=== PATIENT | female | born 1950 | race Caucasian/White ===

== ENCOUNTER → 2017-10-02 10:24 | Outpatient (CLI) | payer MEDICARE, SELFPAY ==
--- NOTE | 2017-10-13 12:10 | PCM.PN.BLA ---
Progress Note This progress noted is dated for 10/02/17. Clara presents for right breast stereotactic breast biopsy. Clara had attempted US guided right needle core breast biopsy on 09/19/17, however the ultrasound lesion could not be identified Therefore, I have discussed this with patient. I have offered alternative biopsy option of stereotactic breast biopsy. She agreed with this. After appropriate time out protocol was followed, patient was placed on the stereotactic breast biopsy table. Manager Occupational films were obtained, for the location of the abnormal mammographic lesion. However, despite multiple views on hand surgeon films, no definitive abnormal mammographic lesions were noted that were indicative for biopsy. Therefore, I have discussed this with the patient. I have recommended repeat right breast US/mammograms to be done in November, and also 3D mammography. Will then reevaluate patient after this is done. Patient agrees.
--- NOTE | 2017-10-13 12:13 | PN_ITS ---
Progress Note This progress noted is dated for 10/02/17. Clara presents for right breast stereotactic breast biopsy. Clara had attempted US guided right needle core breast biopsy on 09/19/17, however the ultrasound lesion could not be identified Therefore, I have discussed this with patient. I have offered alternative biopsy option of stereotactic breast biopsy. She agreed with this. After appropriate time out protocol was followed, patient was placed on the stereotactic breast biopsy table. Sail Finisher Hand films were obtained, for the location of the abnormal mammographic lesion. However, despite multiple views on auto accessories installer films, no definitive abnormal mammographic lesions were noted that were indicative for biopsy. Therefore, I have discussed this with the patient. I have recommended repeat right breast US/mammograms to be done in November, and also 3D mammography. Will then reevaluate patient after this is done. Patient agrees.
== END ==
PROVIDERS: Family Provider Family Medicine; PCP Family Medicine; Visit Provider Surgery
DX: R92.8 Other abnormal and inconclusive findings on diagnostic imaging of breast (principal)
CPT/HCPCS: 19081

== ENCOUNTER → 2018-08-27 15:24 | Outpatient (CLI) | payer MEDICARE, SELFPAY ==
[2018-08-27 14:22] VITALS: BMI 31.6
--- NOTE | 2018-08-27 15:38 | RAD_ITS ---
STUDY: X-RAY - LEFT KNEE REASON FOR EXAM: Female, 67 years old. Chronic pain TECHNIQUE: 3 view(s) of the knee. COMPARISON: None. FINDINGS: There are degenerative changes of the knee demonstrate spurs from the tibial and femoral condyles and from the margins of the patella. There are no fractures and no knee joint effusion. The quadriceps and patellar tendons are normal. RAD/Knee 3 Views IMPRESSION: Moderate degenerative changes of the knee. No acute fracture Electronically Signed: Abdullahi Peterson MD at 3:02 EST Tel , Service support ,
[2018-08-27 17:36] LABS: Anion Gap 7 (5-15); BUN 14 mg/dL (7-18); BUN/Creat Ratio 17.7 RATIO (10-20); Calcium,Total 9.3 mg/dL (8.5-10.1); Chloride 103 mmol/L (98-107); Creatinine, Serum 0.79 mg/dL (0.55-1.02); EST Glomerular Filtration Rate 77 mL/min (>60); Est Glom Filt Rate - Afr Amer 93 mL/min (>60); Glucose 87 mg/dL (74-106); Potassium 3.4 mmol/L (3.5-5.1); Sodium Level 139 mmol/L (136-145)
== END ==
PROVIDERS: Family Provider Family Medicine; PCP Family Medicine; Referring Provider Family Medicine; Visit Provider Family Medicine
DX: M19.90 Unspecified osteoarthritis, unspecified site (principal); I10 Essential (primary) hypertension
CPT/HCPCS: 36415; 73562; 80048

== ENCOUNTER → 2018-09-04 13:52 | Outpatient (CLI) | payer MEDICARE, SELFPAY ==
[2018-08-27 14:22] VITALS: BMI 31.6
[2018-09-02 10:13] VITALS: BMI 31.1
--- NOTE | 2018-09-04 14:01 | BD_ITS ---
STUDY: DUAL ENERGY X-RAY ABSORPTIOMETRY / DXA REASON FOR EXAM: Female, 67 years old. The patient is postmenopausal. Loss of height. TECHNIQUE: Bone Mineral Density (BMD) measurements of lumbar spine and bilateral hips were obtained. COMPARISON: None. FINDINGS: Lumbar Spine (L1-L4): g/cm2 (1.047) / T-score (-1.1) / Z-score (0.5) Findings are suggestive of osteopenia with a low fracture risk. Left Femur Total: g/cm2 (0.858) / T-score (-1.2) / Z-score (0.2) Left Femoral Neck: g/cm2 (0.901) / T-score (-1.0) / Z-score (0.6) Right Femur Total: g/cm2 (0.937) / T-score (-0.6) / Z-score (0.8) Right Femoral Neck: g/cm2 (0.879) / T-score (-1.1) / Z-score (0.5) BD/Dexa Bone Density Study IMPRESSION: The patient is considered osteopenic as outlined below according to World Nicholas Organization (WHO) criteria with a low fracture risk. Reference Information: The T-score is the number of standard deviations above or below the standard which is normal for young adults at their peak bone mineral density. The World Health Organization (WHO) interprets the T-scores as follows: Above -1 Normal bone density Between -1 and -2.5 Osteopenia Equal to / or below -2.5 Osteoporosis As a practical clinical guideline, osteopenia may be graded as follows: Mild -1 through -1.5 Moderate -1.6 through -2.0 Severe -2.1 through -2.4 The Z-score is the number of standard deviations above or below age-matched controls. A Z-score of less than -1.5 would be considered abnormal. References: 1. NIH Osteoporosis and Related Bone Diseases http://www.osteo.org 2. International Society for Clinical Densitometry http://www.iscd.org 3. National Osteoporosis Foundation http://www.nof.org Electronically Signed: Jay Guevara MD at 14:18 EST , Service support ,
== END ==
PROVIDERS: Family Provider Family Medicine; PCP Family Medicine; Referring Provider Family Medicine; Visit Provider Family Medicine
DX: N95.9 Unspecified menopausal and perimenopausal disorder (principal)
CPT/HCPCS: 77080

== ENCOUNTER → 2019-02-05 | Outpatient (CLI) | payer MEDICARE, SELFPAY ==
[2019-01-14 11:20] VITALS: BMI 31.2
--- NOTE | 2019-02-05 08:08 | CT_ITS ---
STUDY: CT ABDOMEN AND PELVIS WITH AND WITHOUT CONTRAST REASON FOR EXAM: Female, 68 years old. Gross hematuria. Intermittent right lower quadrant pain. RADIATION DOSAGE (If Supplied By Facility): CTDIvol = ( 20.48 ) mGy, DLP = ( 2755.10 ) mGycm TECHNIQUE: Transaxial images were obtained from the dome of the diaphragm to the symphysis pubis without oral contrast. 100CC IV Isovue 300 was administered. Sagittal and coronal images were reconstructed. Individualized dose optimization techniques were used for this CT. COMPARISON: None. FINDINGS: The visualized lung bases are unremarkable. The visualized portions of the heart are within normal limits. Normal liver. There are surgical clips in the gallbladder fossa consistent with a prior cholecystectomy. Normal spleen. Normal pancreas. Normal bilateral adrenal glands. Normal right kidney. Normal left kidney. Normal visualized stomach. Normal small intestine. There are multiple colonic diverticula consistent with diverticulosis. The appendix is visualized and appears normal. There is scattered atherosclerotic calcification of the abdominal aorta, without a demonstrated aneurysm. Normal inferior vena cava. Normal retroperitoneum. There is a 1.8 cm x 2.8 cm calculus at the base of the bladder. There is absence of the uterus consistent with a prior hysterectomy. Small bilateral inguinal hernias containing fat. Disc space narrowing and degeneration at the L5-S1 level. CT/CT Abd/Pelvis W/WO Contrast IMPRESSION: 1.8 cm x 2.8 cm focus at the base of the bladder. Sigmoid diverticulosis. Electronically Signed: Jay Guevara, at 9:20 EDT , Service support ,
[2019-02-05 08:21] LABS: CREATININE FINGERSTICK 0.8 mg/dL (0.55-1.02); EGFR FINGERSTICK > 60.0000 mL/min (>60)
== END | disposition home or self-care (01) ==
PROVIDERS: Family Provider Family Medicine; PCP Family Medicine; Referring Provider Urology; Visit Provider Urology
DX: R31.0 Gross hematuria (principal)
CPT/HCPCS: 74178; Q9967

== ENCOUNTER 2019-02-17 05:54 | Day surgery (SDC) | payer MEDICARE, SELFPAY ==
[2019-01-14 11:20] VITALS: BMI 31.2
[2019-02-17] VITALS (7 sets, daily range): BP systolic 117–145; BP diastolic 70–84; PULSE 65–84; RESP 16; TEMP 36.3–36.8; O2SAT 99–100; BMI 30.9
--- NOTE | 2019-02-17 07:30 | CALC_PTH ---
PATIENT: JUSTICE EVANS LOC: [facility] [place] U#:[id number] AGE/SX: 68/F ROOM: RE02/17/[address]: Dr. Shanika Sharma MD : 1950 BED: DIS: 02/17/2019 SPEC #: [id number] RECD: 02/18/19 07:54 STATUS: MATIAS RECarmelo #: [id number] MED: 02/17/19 07:[address]: Shanika Sharma DEPT: SURGICAL PATHOLOGY RECD BY: Cornelio Lomeli ENTERED: 02/18/19 11:06 SP TYPE: Calculi OTHR DR: Dr. Colin Del Rosario, DO Tissues: CALCULI Procedures: Surgery Specimen Level I HEADER OPERATION: Cystoscopy, laser removal of bladder foreign body PRE-OP DIAGNOSIS: Calculus of bladder, UTI, gross hematuria, chronic bladder pain, nocturia, urge incontinence TISSUE SUBMITTED: Bladder stones and stitch for verification only GROSS DIAGNOSIS Fragments of stones, clinically bladder stones. NAM:michael 02/18/19 COMMENT If chemical analysis is requested on this specimen, please notify the laboratory. GROSS DESCRIPTION Received in fixative is one container labeled with the patient's name and designated bladder stones and stitch. The specimen consists of multiple fragments of handy-brown stone that in aggregate measure 3.5 x 1 x 1 cm. The specimen is for gross identification only. / NAM:michael 02/18/19 CPT: 98793
[2019-02-17] MEDS: Cefazolin 2 GM in 0.9% Normal Saline 100 ML IV (07:44)
[2019-02-17] MEDS: Lubricating Jelly 60 GM Tube 30 GM TOPICAL (08:04)
--- NOTE | 2019-02-17 09:58 | DCINST_ITS ---
Discharge Diet: No Restrictions Discharge Activity: May not drive while taking narcotic pain medications. May resume sexual activity in: 1 week Call your doctor if you observe: Fever of 101 or Higher, Inability to urinate, Shortness of breath, Chest pain, Calf discomfort, Uncontrolled pain Allergies/Adverse Reactions: Allergies Sulfa (Sulfonamide Antibiotics) Allergy (Severe, Verified 02/13/19 10:20) Hives Medications to take at Discharge ibuprofen 200 mg capsule 200 mg PO TID-QID PRN 08/27/18 Acetaminophen [Tylenol] 500 - 1,000 mg PO Q6H PRN PRN 02/13/19 Calcium Carbonate/Vitamin D3 [Calcium 600-Vit D3 200 Tablet] 1 ea PO BID 02/13/19 Lisinopril/Hydrochlorothiazide [Lisinopril-Hctz 20-12.5 mg Tab] 1 tab PO DAILY 02/13/19 Multivit-Min/FA/Lycopen/Lutein [Centrum Silver Tablet] 1 ea PO DAILY 02/13/19 Cephalexin [Keflex] 500 mg PO Q12 3 Days #6 cap 02/17/19 Oxycodone HCl/Acetaminophen [Percocet 5/325] 1 - 2 tab PO Q6H PRN PRN 7 Days #15 tab 02/17/19 Phenazopyridine HCl [Pyridium] 200 mg PO TID PRN PRN 7 Days #30 tab 02/17/19 The following prescriptions were given: Cephalexin [Keflex] 500 mg PO Q12 3 Days #6 cap Prescription Printed Oxycodone HCl/Acetaminophen [Percocet 5/325] 1 - 2 tab PO Q6H PRN PRN 7 Days #15 tab PRN Reason: Pain Prescription Printed Phenazopyridine HCl [Pyridium] 200 mg PO TID PRN PRN 7 Days #30 tab PRN Reason: Bladder Spasms Prescription Printed Primary Care Physician: Colin Del Rosario DO [Primary Care Provider] - Test Results: Test results from this visit will be discussed in further detail at your follow- up appointment, if applicable. Please Follow Up With: Shanika Sharma MD When: 2 weeks, call for appt Proposed Discharge Date: 02/17/19
--- NOTE | 2019-02-17 09:59 | OP.PCM_ITS ---
Problem List (1) Bladder calculus Status: Acute (2) Foreign body in bladder Status: Acute Report of Operation Date of Procedure: 02/17/19 Pre-Operative Diagnosis: Bladder calculus, foreign body in bladder (suture) Post-Operative Diagnosis: Same Surgery/Procedure Performed:: Cystoscopy, holmium laser lithotripsy, excision and removal of foreign body in the bladder and removal of stone Description of Surgical Findings:: Stitch from the patient's right bladder wall was removed along with the 2 cm bladder calculus attached to using holmium laser lithotripsy and irrigation Type of Anesthesia:: General Special Medications: Ancef 2 g IV Estimated Blood Loss (mL): 5 cc Description of Procedure: The patient is a 68-year-old female who had a hysterectomy and procedure for incontinence in 2002. She presented to the office with microscopic hematuria and right-sided pelvic pain. On evaluation she was identified as having a suture into the bladder lumen from the right lateral wall approximately half centimeter on the bladder neck with a 2 cm calcification at the end of the stitch. After discussing the risk benefits and alternatives, informed consent was obtained and we proceeded for surgical intervention for removal of the stitch and stone. She was taken the operating room and placed on the operating room table. Anesthesia monitored the head, neck, airway, IV access and vital signs throughout the case. Once anesthesia was appropriately administered the patient was prepped and draped in usual sterile fashion. A 70 degree lens and 21 [place] cystoscope was inserted through the urethra without difficulty and the stone was immediately visualized in the patient's right bladder neck area attached to a suture as found in the office on previous cystoscopy. There is also a tissue bridge likely from chronic irritation along the area of the patient's right bladder neck. This tissue bridge is not involving the patient's right ureteral orifice which was identified along the area of the trigone. Her orifice is small and I was unable to easily insert an 8 [place] cone-tip catheter for retrograde pyelogram. There is no obvious injury to the ureter. At this time a 1000 ?m laser fiber was used in the setting of 1 J and 0.8 Hz and the stone was fragmented into multiple small pieces which were irrigated and removed with the resectoscope. The suture was also removed with the laser and it was approximately 0.75-1 cm in length. Following irrigation of the bladder, all large stone fragments were removed and no further suture material was identified. Patient's bladder was emptied and she was awakened and taken to the recovery room in good condition. There were no complications during this procedure. Grafts/Implants Used: None - Complications none - Admit VTE Documentation VTE Present on Admission: Yes VTE Mechan Device Prophylaxis: SCD's VTE Pharm Prophylaxis ordered?: No Reason prophylaxis not ordered:: Treatment Not Indicated
== END 2019-02-17 12:12 | disposition home or self-care (01) ==
LOC: SDC 06:03 → AC 06:10
PROVIDERS: Family Provider Family Medicine; PCP Family Medicine; Referring Provider Urology; Visit Provider Urology
PROC: (CPT 52353; principal; 2019-02-17 07:20)
DX: N21.0 Calculus in bladder (principal); T19.1XXA Foreign body in bladder, initial encounter; X58.XXXA Exposure to other specified factors, initial encounter; Y93.9 Activity, unspecified; Y92.9 Unspecified place or not applicable; I10 Essential (primary) hypertension; Z79.899 Other long term (current) drug therapy
CPT/HCPCS: 00910; 52317; 88300; J7120; J2405

== ENCOUNTER → 2019-09-02 10:27 | Outpatient (CLI) | payer MEDICARE, SELFPAY ==
[2019-09-02 10:16] VITALS: BMI 30.9
[2019-09-02 13:03] LABS: ALB/GLOB Ratio 1.2 RATIO (0.9-2.4); AST(SGOT) 17 U/L (15-37); Alanine Aminotransfer ALT/SGPT 27 U/L (12-78); Alkaline Phosphatase 77 U/L (50-136); Anion Gap 4 (5-15); BUN 18 mg/dL (7-18); BUN/Creat Ratio 19.5 RATIO (10-20); Calcium,Total 9.8 mg/dL (8.5-10.1); Chloride 103 mmol/L (98-107); Creatinine, Serum 0.92 mg/dL (0.55-1.20); EST Glomerular Filtration Rate 64 mL/min (>60); Est Glom Filt Rate - Afr Amer 78 mL/min (>60); Globulin 3.3 g/dL (2.3-3.5); Glucose 87 mg/dL (70-110); Potassium 3.8 mmol/L (3.5-5.1); Protein, Total 7.3 g/dL (6.4-8.2); Sodium Level 137 mmol/L (136-145)
== END ==
PROVIDERS: PCP Family Medicine; Referring Provider Family Medicine; Visit Provider Family Medicine
DX: I10 Essential (primary) hypertension (principal)
CPT/HCPCS: 36415; 80053

== ENCOUNTER → 2020-09-06 11:46 | Outpatient (CLI) | payer MEDICARE, SELFPAY ==
[2020-09-06 11:07] VITALS: BMI 32.9
[2020-09-06 15:33] LABS: ALB/GLOB Ratio 1.2 RATIO (0.9-2.4); AST(SGOT) 22 U/L (15-37); Alanine Aminotransfer ALT/SGPT 26 U/L (13-56); Albumin, Serum 3.9 g/dL (3.2-5.0); Alkaline Phosphatase 80 U/L (45-117); Anion Gap 6 (5-15); BUN 17 mg/dL (7-18); BUN/Creat Ratio 22.1 RATIO (10-20); Calcium,Total 9.5 mg/dL (8.5-10.1); Chloride 104 mmol/L (98-107); Creatinine, Serum 0.77 mg/dL (0.55-1.02); EST Glomerular Filtration Rate 79 mL/min (>60); Est Glom Filt Rate - Afr Amer 95 mL/min (>60); Globulin 3.2 g/dL (2.2-4.2); Glucose 93 mg/dL (74-106); Potassium 3.8 mmol/L (3.5-5.1); Protein, Total 7.1 g/dL (6.4-8.2); Sodium Level 139 mmol/L (136-145)
== END ==
PROVIDERS: PCP Family Medicine; Referring Provider Family Medicine; Visit Provider Family Medicine
DX: I10 Essential (primary) hypertension (principal)
CPT/HCPCS: 36415; 80053

== ENCOUNTER 2021-08-24 09:40 | Outpatient (CLI) | payer MEDICARE, SELFPAY ==
[2021-08-24 12:56] LABS: ALB/GLOB Ratio 1.1 RATIO (0.9-2.4); AST(SGOT) 19 U/L (15-37); Alanine Aminotransfer ALT/SGPT 24 U/L (13-56); Albumin, Serum 3.8 g/dL (3.2-5.0); Alkaline Phosphatase 87 U/L (45-117); Anion Gap 6 (5-15); BUN 14 mg/dL (7-18); BUN/Creat Ratio 16.8 RATIO (10-20); Calcium,Total 9.3 mg/dL (8.5-10.1); Chloride 101 mmol/L (98-107); Creatinine, Serum 0.84 mg/dL (0.55-1.02); EST Glomerular Filtration Rate 71 mL/min (>60); Est Glom Filt Rate - Afr Amer 86 mL/min (>60); Globulin 3.5 g/dL (2.2-4.2); Glucose 119 mg/dL (74-106); Potassium 3.6 mmol/L (3.5-5.1); Protein, Total 7.3 g/dL (6.4-8.2); Sodium Level 135 mmol/L (136-145)
== END 2021-08-24 23:59 | disposition short-term general hospital (02) ==
LOC: BIMLAB 09:42
PROVIDERS: PCP Family Medicine; Referring Provider Family Medicine; Visit Provider Family Medicine
DX: I10 Essential (primary) hypertension (principal)
CPT/HCPCS: 36415; 80053

== ENCOUNTER → 2022-08-30 | Outpatient (CLI) | payer MEDICARE, SELFPAY ==
[2022-08-30 15:08] LABS: Absolute Lymphocyte Count 1.13 X10^3/uL (0.83-4.51); Absolute Neutrophil Count 4.5 X10^3/uL (2.0-7.7); Basophil# 0.03 X10^3/uL; Basophil% 0.5 % (0-1); Eosinophil# 0.06 X10^3/uL; Hematocrit 40.2 % (37-47); Lymphocyte # 1.13 X10^3/ul (0.83-4.51); Lymphocyte % 18.6 % (19-41); Mean Corp Hgb Conc 32.3 g/dL (32-36); Mean Corpuscular Hgb 28.5 pg (27.0-32.0); Mean Corpuscular Volume 88.2 fL (81-99); Mean Platelet Vol. 9.7 fl (6.2-12.0); Monocyte# 0.37 X10^3/uL; Monocyte% 6.1 % (0-10); NRBC Flagged by Analyzer 0 % (0-5); Neutrophil # 4.46 X10^3/uL (2.7-7.7); Neutrophil % 73.5 % (47-70); Platelet Count 330 K/mm3 (150-450); RBC Distribution Width CV 12.7 % (11.6-14.6); Red Blood Count 4.56 M/mm3 (4.2-5.4); White Blood Count 6.1 K/mm3 (4.4-11.0)
[2022-08-30 15:19] LABS: Vitamin D,25 Hydroxy 52.4 ng/mL
[2022-08-30 15:34] LABS: ALB/GLOB Ratio 1.1 RATIO (0.9-2.4); AST(SGOT) 22 U/L (15-37); Alanine Aminotransfer ALT/SGPT 25 U/L (13-56); Albumin, Serum 3.9 g/dL (3.2-5.0); Alkaline Phosphatase 73 U/L (45-117); Anion Gap 9 (5-15); BUN 12 mg/dL (7-18); BUN/Creat Ratio 15.3 RATIO (10-20); Calcium,Total 9.5 mg/dL (8.5-10.1); Chloride 101 mmol/L (98-107); Creatinine, Serum 0.78 mg/dL (0.55-1.02); EST Glomerular Filtration Rate 77 mL/min (>60); Est Glom Filt Rate - Afr Amer 93 mL/min (>60); Globulin 3.6 g/dL (2.2-4.2); Glucose 91 mg/dL (74-106); Potassium 3.9 mmol/L (3.5-5.1); Protein, Total 7.5 g/dL (6.4-8.2); Sodium Level 138 mmol/L (136-145); Thyroid Stim Hormone (TSH) 2.99 uIU/mL (0.358-3.74)
== END | disposition home or self-care (01) ==
LOC: BIMLAB 12:07
PROVIDERS: PCP Family Medicine; Referring Provider Family Medicine; Visit Provider Family Medicine
DX: I10 Essential (primary) hypertension (principal); Z78.0 Asymptomatic menopausal state; M85.80 Other specified disorders of bone density and structure, unspecified site
CPT/HCPCS: 36415; 80053; 82306; 84443; 85025

== ENCOUNTER → 2022-09-20 | Outpatient (CLI) | payer MEDICARE, SELFPAY ==
--- NOTE | 2022-09-20 10:19 | BD_ITS ---
STUDY: DUAL ENERGY X-RAY ABSORPTIOMETRY / DXA REASON FOR EXAM: Female, 71 years old. Osteoporosis TECHNIQUE: Bone Mineral Density (BMD) measurements of lumbar spine and bilateral hips were obtained. COMPARISON: Comparison is made with prior study dated 09/04/2018. FINDINGS: Lumbar Spine (L1-L4): g/cm2 (0.871) / T-score (-1.3) / Z-score (0.9) Findings are suggestive of osteopenia with a low fracture risk. Left Femur Total: g/cm2 (0.831) / T-score (-0.9) / Z-score (0.7) Left Femoral Neck: g/cm2 (0.765) / T-score (-0.8) / Z-score (1.2) Right Femur Total: g/cm2 (0.860) / T-score (-0.7) / Z-score (1.0) Right Femoral Neck: g/cm2 (0.719) / T-score (-1.2) / Z-score (0.8) The T-Scores on the most recent prior examination were: Lumbar Spine (L1-L4): There has been worsening of bone density since the previous examination. Left Femur Total: which represents an improvement of 4.3%. Right Femur Total: which represents a worsening of 1.5%. BD/Dexa Bone Density Study IMPRESSION: The patient is considered osteopenic as outlined below according to World Nicholas Organization (WHO) criteria with a low fracture risk. There has been worsening of bone density since the previous examination. Reference Information: The T-score is the number of standard deviations above or below the standard which is normal for young adults at their peak bone mineral density. The World Health Organization (WHO) interprets the T-scores as follows: Above -1 Normal bone density Between -1 and -2.5 Osteopenia Equal to / or below -2.5 Osteoporosis As a practical clinical guideline, osteopenia may be graded as follows: Mild -1 through -1.5 Moderate -1.6 through -2.0 Severe -2.1 through -2.4 The Z-score is the number of standard deviations above or below age-matched controls. A Z-score of less than -1.5 would be considered abnormal. References: 1. NIH Osteoporosis and Related Bone Diseases www osteo.org 2. International Society for Clinical Densitometry www iscd.org 3. National Osteoporosis Foundation www nof.org Electronically Signed: Jay Guevara MD at 15:22 EST ,
== END | disposition home or self-care (01) ==
LOC: OPBD 10:16
PROVIDERS: PCP Family Medicine; Referring Provider Family Medicine; Visit Provider Family Medicine
DX: M81.0 Age-related osteoporosis without current pathological fracture (principal)
CPT/HCPCS: 77080

== ENCOUNTER → 2023-09-12 | Outpatient (CLI) | payer MEDICARE, SELFPAY ==
[2023-09-12 15:16] LABS: Absolute Lymphocyte Count 1.82 X10^3/uL (0.83-4.51); Absolute Neutrophil Count 4.4 X10^3/uL (2.0-7.7); Basophil# 0.06 X10^3/uL; Basophil% 0.9 % (0-1); Eosinophil# 0.12 X10^3/uL; Eosinophils% 1.7 % (0-5); Lymphocyte # 1.82 X10^3/ul (0.83-4.51); Lymphocyte % 26.3 % (19-41); Mean Corp Hgb Conc 32.5 g/dL (32-36); Mean Corpuscular Hgb 28.4 pg (27.0-32.0); Mean Corpuscular Volume 87.3 fL (81-99); Mean Platelet Vol. 9.2 fl (6.2-12.0); Monocyte% 7.2 % (0-10); NRBC Flagged by Analyzer 0 % (0-5); Neutrophil % 63.6 % (47-70); Platelet Count 369 K/mm3 (150-450); RBC Distribution Width CV 12.7 % (11.6-14.6); RBC Distribution Width SD 40.3 fl (35.1-43.9); Red Blood Count 4.58 M/mm3 (4.2-5.4); White Blood Count 6.9 K/mm3 (4.4-11.0)
[2023-09-12 15:55] LABS: ALB/GLOB Ratio 1.3 RATIO (0.9-2.4); AST(SGOT) 20 U/L (15-37); Alanine Aminotransfer ALT/SGPT 25 U/L (13-56); Albumin, Serum 3.9 g/dL (3.2-5.0); Alkaline Phosphatase 79 U/L (45-117); Anion Gap 3 (5-15); BUN 17 mg/dL (7-18); BUN/Creat Ratio 19.3 RATIO (10-20); Calcium,Total 9.7 mg/dL (8.5-10.1); Chloride 105 mmol/L (98-107); Creatinine, Serum 0.88 mg/dL (0.55-1.02); EST Glomerular Filtration Rate 67 mL/min (>60); Est Glom Filt Rate - Afr Amer 81 mL/min (>60); Globulin 3.1 g/dL (2.2-4.2); Glucose 113 mg/dL (74-106); Potassium 3.6 mmol/L (3.5-5.1); Sodium Level 140 mmol/L (136-145)
== END | disposition home or self-care (01) ==
LOC: BIMLAB 13:03
PROVIDERS: PCP Family Medicine; Visit Provider Family Medicine
DX: I10 Essential (primary) hypertension (principal)
CPT/HCPCS: 36415; 80053; 85025

== ENCOUNTER → 2024-01-23 | Outpatient (CLI) | payer MEDICARE, SELFPAY ==
[2024-01-23 10:56] LABS: Bacteria 0 SEEN /hpf (None Seen); Mucous, Urine 0 SEEN /hpf (<or=2+); Red Blood Cells-Urine 0 SEEN /hpf (0-5); Squamous Epithelial Cells - UA 0 SEEN /hpf (5-10); White Blood Cells 0 SEEN /hpf (0-5)
[2024-01-23 12:14] LABS: Color, Urine Yellow (Yellow); Glucose, Dipstick Normal (Normal); Ketone-Dipstick Negative (Negative); Leukocyte Esterase-Dipstick Negative /ul (Negative); Nitrite-Dipstick Negative (Negative); Occult Blood-Urine Negative /ul (Negative); Protein-Dipstick Negative (Negative); Urine Bilirubin Dipstick Negative (Negative); Urine Clarity Clear (Clear); Urine Urobilinogen Normal (Normal)
== END | disposition home or self-care (01) ==
LOC: BIMLAB 10:54
PROVIDERS: PCP Family Medicine; Referring Provider Family Medicine; Visit Provider Family Medicine
DX: N39.0 Urinary tract infection, site not specified (principal); A49.9 Bacterial infection, unspecified
CPT/HCPCS: 81001

== ENCOUNTER 2024-03-24 07:35 | Day surgery (SDC) | payer MEDICARE, SELFPAY ==
[2024-03-24] VITALS (8 sets, daily range): BP systolic 127–164; BP diastolic 68–75; PULSE 73–97; RESP 14–16; TEMP 36.1–37.1; O2SAT 98–100; BMI 26.6
[2024-03-24] MEDS: Lactated Ringers 1,000 ML 15 ML IV (07:52)
--- NOTE | 2024-03-24 08:02 | PCM.PRE.AN2 ---
ASA Classification* ASA Classification ASA Classification: 2 Assessment & Plan Anesthesia* Anesthesia Assessment Anesthesia Assessment: Discussed sedation and/or anesthesia options, risks, benefits, and alternatives with patient/parents/legal guardian/POA. Questions invited. The patient/parents/legal guardian/POA seems to understand and agrees to proceed with anesthesia plan. Reviewed the physical assessment, medical history, allergy history and patient home medications list prior to surgery/procedure/anesthetic and documented any changes. Performed airway and anesthesia risk assessments. Anesthesia Type Anesthesia Type: MAC Anesthesia Focused Assessment* Temperature: 97 F Pulse Rate: 97 Blood Pressure: 164/75 Respiratory Rate: 16 Pulse Ox: 100 Airway Assessment Mouth opens: >3 cm Mallampati Score: II Focused Labs Anesthesia Preop lab: CBC WBC 6.9 K/mm3 (4.4-11.0) 09/12/23 13:04 RBC 4.58 M/mm3 (4.2-5.4) 09/12/23 13:04 Hgb 13.0 g/dL (12.0-15.0) 09/12/23 13:04 Hct 40.0 % (37-47) 09/12/23 13:04 Plt Count 369 K/mm3 (150-450) 09/12/23 13:04 CHEMISTRY Potassium 3.6 mmol/L (3.5-5.1) 09/12/23 13:04 Sodium 140 mmol/L (136-145) 09/12/23 13:04 BUN 17 mg/dL (7-18) 09/12/23 13:04 Creatinine 0.88 mg/dL (0.55-1.02) 09/12/23 13:04 Glucose 113 mg/dL (74-106) H 09/12/23 13:04 TSH 2.99 uIU/mL (0.358-3.74) 08/30/22 12:07 COAG Pre-Assessment Diagnosis/Proposed Procedure Planned Operative Procedure(s): EGD Anesthesia History Anesthesia History - client care consultant: Anesthesia History - client care consultant Hx Hospitalization No 03/19/24 09:16 Any Problems With Anesthesia No 03/19/24 09:16 Cholinesterase deficiency No 03/19/24 09:16 You/Your Family Experience No 03/19/24 09:16 fever (hyperthermia) with Relationship Recent Exposure to Contagious No 03/24/24 07:49 Disease Does patient have nerve No 03/19/24 09:16 stimulator Patient instructed to have device shut off --Does patient have Pacemaker No 03/24/24 07:49 or ICD? When Was Last Pacemaker Check QUESTION #4 FULL TEXT: You/Your Family Experience fever (hyperthermia) with Anesthesia Last Oral Intake Last Oral intake: Last Oral Intake NPO since 03:00 03/24/24 07:49 Meds taken in AM with sips of Yes 03/24/24 07:49 water? Meds patient instructed to nexium 03/24/24 07:49 take am of surgery PONV PONV - client care consultant: PONV - client care consultant Female Yes 03/19/24 09:16 HX of Motion Sickness Yes 03/19/24 09:16 HX of N/V After Surgery No 03/19/24 09:16 Non-Smoker Yes 03/19/24 09:16 Duration of Surgery greater No 03/19/24 09:16 than 60 minutes Number of Risk Factors 3 03/19/24 09:16 PONV Score Moderate Risk 03/19/24 09:16 Height & Weight Height & Weight: Anesthesia: Height & Weight Height 5 ft 2 in 03/24/24 07:49 Weight: 66 kg 03/24/24 07:49 Body Mass Index (BMI) 26.6 03/24/24 07:49 Respiratory Assessment Respiratory Assessment - client care consultant: Respiratory Tract Infection Hx - client care consultant Hx Respiratory Tract Infection No 03/19/24 09:16 STOP Sleep Apnea STOP Sleep Apnea - client care consultant: STOP Sleep Apnea - client care consultant Hx Hypertension Yes: CONTROLLED WITH MED 03/19/24 09:16 Hx Sleep Apnea No 03/19/24 09:16 CPAP BIPAP Do you snore loudly (louder No 03/19/24 09:16 than talking or can be heard Do you often feel tired/ Yes 03/19/24 09:16 fatigued/ sleepy during daytime? Has anyone observed you stop No 03/19/24 09:16 breathing during sleep? STOP Results Positive 03/19/24 09:16 QUESTION #5 FULL TEXT : Do you snore loudly (louder than talking or can be heard through closed doors)? Tobacco Use History Tobacco Use History - client care consultant: Tobacco Use History - client care consultant Tobacco Use Smoking Status Never smoker 03/19/24 09:16 Hx Tobacco Use No 03/19/24 09:16 Years Smoking Packs Smoked per Day Smoking Cessation Date was within the last 15 years Hx Smoking Cessation Date Hx Smoking Cessation Counseling Hematologic Medial History Hematologic Hx - client care consultant: Hematologic Medical Hx - staff nurse anesthetist Hx of Blood Transfusion No 03/19/24 09:16 Hx of Transfusion in last 3 No 03/19/24 09:16 Months Date of Last Transfusion (if within last 3 months) Ever experience any problems No 03/19/24 09:16 with transfusion(s)? Specify any problems Hx of Preganancy in last 3 No 03/19/24 09:16 Months Nurse Filling Out Transfusion DSCHRIBER 03/19/24 09:16 & Questions: Date: 03/19/24 03/19/24 09:16 Time: 09:18 03/19/24 09:16 Patient unable to answer at this time (ie. confused, unrespo /Reproduction History /Reproductive History - client care consultant: /Reproductive Hx- client care consultant Hx Now No 03/19/24 09:16 Gestational Age (in weeks): EDC: Hx Hx Para Hx Section SAB No 03/19/24 09:16 Active Medications Active Medications: Current Medications Generic Name Dose Route Start Last Admin Trade Name Freq PRN Reason Stop Dose Admin Lactated Ringer's 1,000 mls @ 15 mls/hr 03/24/24 07:45 03/24/24 07:52 IV 15 mls/hr .Q48H FAVIAN Administration PFSH Medical History (Updated 03/19/24 @ 09:27 by Radha Topete) Loss of hearing Wears glasses Depression Anxiety Back pain Syncope Difficulty swallowing Shortness of breath on exertion Non-smoker Leg cramps History of pain when walking History of irregular heartbeat Hematuria removal of bladder stone GERD (gastroesophageal reflux disease) History of breast lump Hypertension Arthritis History of rectal polyps Home Medications ?Medication ?Instructions ?Recorded ?Last Taken ?Type acetaminophen 500 mg tablet 500 - 1,000 mg PO Q6H PRN PRN Pain 02/13/19 Unknown History calcium carbonate 600 mg-vitamin 1 ea PO DAILY SUPPLEMENT 02/13/19 03/23/24 History D3 5 mcg (200 unit) tablet jspgqqwn-lnu-cutko acid 0.4 1 ea PO DAILY SUPPLEMENT 02/13/19 03/23/24 History mg-lycopene 300 mcg-lutein 250 mcg tablet esomeprazole magnesium 20 mg 20 mg PO DAILY #30 caps 09/06/20 03/24/24 Rx capsule,delayed release (Nexium 24HR) ondansetron HCl 8 mg tablet 8 mg PO Q8H PRN nausea and 03/13/23 Unknown Rx vomiting #14 tabs lisinopril 20 1 tab PO DAILY HTN #90 tabs 09/10/23 03/23/24 Rx mg-hydrochlorothiazide 12.5 mg tablet clobetasol 0.05 % topical ointment 1 applic topical QHS PRN ROSECA 03/19/24 Unknown History triamcinolone acetonide 0.1 % 1 applic topical DAILY PRN ROSECA 03/19/24 Unknown History topical cream Allergy/AdvReac Type Severity Reaction Status Date / Time Sulfa (Sulfonamide Allergy Severe Hives Verified 03/24/24 07:48 Antibiotics) Family History Father Heart disease Cancer skin cancer Grandfather Heart disease Brother Diabetes Other Arthritis Surgical History (Updated 03/19/24 @ 09:27 by Radha Topete) Hx of breast biopsy History of left knee surgery History of cholecystectomy S/P left knee arthroscopy History of bilateral carpal tunnel release History of bladder repair surgery History of umbilical hernia repair History of hysterectomy History of appendectomy History of tonsillectomy and adenoidectomy Social History Smoking Status: Never smoker alcohol intake: never substance use type: does not use what type of physical activity do you participate in: none Review of Systems (Anesthesia) ROS Narrative System reviewed and no additional complaints, except as documented.
--- NOTE | 2024-03-24 08:20 | PCM.HP.BLA ---
History and Physical Date of Admission: 03/24/24 Intake Vital Signs 01/07/2410:31 02/13/2415:21 03/09/2409:06 Height 5 ft 2 in 5 ft 2 in 5 ft 2 in Weight: 153 lb 146 lb BMI 28.0 26.6 BP 142/80 H 150/78 H Blood Pressure Location Lt brachial Rt brachial Position Sitting Sitting Respiration 16 17 Pulse 101 H 99 Pulse Source Monitor Monitor Temp 98.0 F 97.4 F L Temp Source Temporal Temporal Pulse Oximetry (%) 98 98 Oxygen Delivery Method room air room air Intake Visit Reasons: Esophagogastroduodenoscopy Chief Complaint: egd Is patient in pain?: No Allergies Sulfa (Sulfonamide Antibiotics) Allergy (Severe, Verified 03/09/24 09:07) Hives Medications ?Medication ?Instructions ?Recorded ?Confirmed ?Type acetaminophen 500 mg tablet 500 - 1,000 mg PO Q6H PRN PRN Pain 02/13/19 03/09/24 History calcium carbonate 600 mg-vitamin 1 ea PO BID SUPPLEMENT 02/13/19 03/09/24 History D3 5 mcg (200 unit) tablet lvcxzzvg-taj-xiqhj acid 0.4 1 ea PO DAILY SUPPLEMENT 02/13/19 03/09/24 History mg-lycopene 300 mcg-lutein 250 mcg tablet esomeprazole magnesium 20 mg 20 mg PO DAILY #30 caps 09/06/20 03/09/24 Rx capsule,delayed release (Nexium 24HR) triamcinolone acetonide 0.1 % 1 applic topical DAILY #30 grams 08/30/22 03/09/24 Rx topical cream ondansetron HCl 8 mg tablet 8 mg PO Q8H PRN nausea and 03/13/23 03/09/24 Rx vomiting #14 tabs clobetasol 0.05 % topical ointment 1 applic topical QHS #30 grams 09/10/23 03/09/24 Rx lisinopril 20 1 tab PO DAILY HTN #90 tabs 09/10/23 03/09/24 Rx mg-hydrochlorothiazide 12.5 mg tablet Have you fallen in the past year?: No PFSH Medical History Hematuria removal of bladder stone GERD (gastroesophageal reflux disease) History of breast lump Hypertension Arthritis History of rectal polyps Surgical History History of left knee surgery History of cholecystectomy S/P left knee arthroscopy History of bilateral carpal tunnel release History of bladder repair surgery History of umbilical hernia repair History of hysterectomy History of appendectomy History of tonsillectomy and adenoidectomy Family History Father Heart disease Cancer skin cancerGrandfather Heart diseaseBrother DiabetesOther Arthritis Social History Smoking Status: Never smoker alcohol intake: never substance use type: does not use what type of physical activity do you participate in: none HPI HPI HPI: Patient is a 73-year-old female with nausea. She was sent here because her PCP would like to get an EGD. She says that the nausea has been ongoing for several months. She was taking Nexium as needed and started taking it daily which helped but it did not resolve the nausea. She denies pain. She denies vomiting. ROS General General: Yes fatigue; No weight change, appetite, colon cancer, breast cancer or weakness HEENT HEENT: No difficulty swallowing, eye injury, eye surgery, swollen glands or hoarseness Endo Endocrine: No thyroid disease, diabetes mellitus, thyroid cancer, Hair loss, heat intolerance or cold intolerance Skin Skin: No rash or changing moles Musc Musculoskeletal: Yes arthritis; No back problems, rheumatoid arthritis, gout or joint pain Cardio Cardiovascular: Yes high blood pressure; No murmur, pacemaker, heart disease, atrial fibrillation, heart attack, heart stent, palpitations, shortness of breat with exertion or chest pain Psych Psychiatric: No depression, anxiety or hearing voices Resp Respiratory: No shortness of breath, No sleep apnea, Yes cough, No COPD, No asthma, No emphysema and No wheezing Gastro Gastrointestinal: No abdominal pain, Yes nausea or vomiting, No diarrhea, No constipation, No blood in stool, Yes acid reflux, Yes hemorrhoids, No ulcers, No gallbladder problem and No black,tarry stools Mihir Hematologic: No blood thinners, No blood disorders, No bleeding, No anemia and No blood clots Neuro Neurologic: No system reviewed and no additional complaints, except as documented, No as per HPI, No abnormal gait, No abnormal hearing, No abnormal movements, No abnormal speech, No behavioral changes, No burning sensations, No confusion, No convulsions, No disequilibrium, No dizziness, No localized weakness, No frequent falls, No headache(s), No lack of coordination, No loss of vision, No memory loss, No numbness, No other visual disturbances, No radicular pain, No restless legs, No sensory deficit, No syncope, No tingling, No tremor(s), No weakness and No other Exam Const General: cooperative Orientation: alert and oriented x3 HENMT Head: normal to inspection Neck Neck: normal visual inspection and full ROM Chest Chest palpation & inspection: normal inspection of the chest Resp Effort & Inspection: normal respiratory effort Auscultation: clear to auscultation bilaterally Cardio Rate: regular rate Rhythm: regular rhythm GI Inspection: non-distended Palpation: soft and nontender Skin General: no rashes or lesions noted Neuro General: patient alert and patient oriented x3 Extrem General: full ROM Psych Appearance: grossly normal Mental Status: mental status grossly normal Assessment and Plan Assessment and Plan (1) Weight loss, non-intentional: Status: Acute (2) Nausea: Status: Acute Orders: Orders EGD Today Plan The patient has been having unexplained nausea especially after eating large meals. She has been on a PPI. She was sent here for EGD to evaluate the stomach for gastritis. Unsure if it is stomach related as she says when she has these episodes of nausea she also feels her heart racing and feels lightheaded. This may be anxiety induced. I explained endoscopy in detail to the patient. I explained the risks including but not limited to stroke or heart attack with anesthesia, perforation of the GI tract, bleeding, infection. I explained that any of these could necessitate further emergency surgery. The patient understands and all questions were answered sufficiently. The patient wishes to proceed with procedure. Kris Bhakta MD Pager: [facility] [address] [place] [address], [address] [place] [address] Office: I have examined the patient and the H&P has been reviewed. There are no clinical changes since date of exam.
--- NOTE | 2024-03-24 08:40 | OP.CCLET_ITS ---
03/24/2024 Colin Del Rosario Re : Upper GI endoscopy procedure for Clara Rich Dear Dr. Del Rosario This procedure was performed on Sunday, March 24, 2024. My impressions and recommendations are as follows: Impressions : - Normal esophagus. - Normal stomach. - Normal examined duodenum. - No specimens collected. Recommendations : - Discharge patient to home. - Resume previous diet. - Continue present medications. - Await pathology results. My findings are described in the full procedure note, which is enclosed. If I can be of further assistance, please feel free to contact me at Doctor phone number(s): , Work: . Sincerely, Kris Bhakta MD 03/24/2024 8:39:46 AM This report has been signed electronically.
--- NOTE | 2024-03-24 08:40 | OP.EGD_ITS ---
Patient Name: Clara Rich Procedure Date: 03/24/2024 8:25 AM Date of : 1950 Age: 73 Procedure: Upper GI endoscopy Indications: Nausea Providers: Kris Bhakta MD Referring MD: Kris Bhakta MD Medicines: Propofol per Anesthesia Patient Profile: This is a 73 year old female. Refer to note in patient chart for documentation of history and physical. Complications: No immediate complications. Procedure: Pre-Anesthesia Assessment: - Prior to the procedure, a History and Physical was performed, and patient medications and allergies were reviewed. The patient's tolerance of previous anesthesia was also reviewed. The risks and benefits of the procedure and the sedation options and risks were discussed with the patient. All questions were answered, and informed consent was obtained. Prior Anticoagulants: The patient has taken no anticoagulant or antiplatelet agents. After reviewing the risks and benefits, the patient was deemed in satisfactory condition to undergo the procedure. After obtaining informed consent, the endoscope was passed under direct vision. Throughout the procedure, the patient's blood pressure, pulse, and oxygen saturations were monitored continuously. The gastroscope was introduced through the mouth, and advanced to the third part of duodenum. The upper GI endoscopy was accomplished without difficulty. The patient tolerated the procedure well. Scope In: 8:30:54 AM Scope Out: 8:33:29 AM Total Procedure Duration Time 0 hours 2 minutes 35 seconds Findings: The esophagus was normal. The stomach was normal. The examined duodenum was normal. Impression: - Normal esophagus. - Normal stomach. - Normal examined duodenum. - No specimens collected. Recommendation: - Discharge patient to home. - Resume previous diet. - Continue present medications. - Await pathology results. Procedure Code(s): --- Professional --- 14581, Esophagogastroduodenoscopy, flexible, transoral; diagnostic, including collection of specimen(s) by brushing or washing, when performed (separate procedure) Diagnosis Code(s): --- Professional --- R11.0, Nausea CPT copyright 2021 [employer]. All rights reserved. The codes documented in this report are preliminary and upon air drier review may be revised to meet current compliance requirements. Kris Bhakta MD 03/24/2024 8:39:46 AM This report has been signed electronically. Number of Addenda: 0 Note Initiated On: 03/24/2024 8:25 AM
--- NOTE | 2024-03-24 08:42 | PCM.POST.ANE ---
Anesthesia: Postop Eval I Current Vital Signs Temperature: 97.6 F Pulse Rate: 76 Blood Pressure: 128/68 Respiratory Rate: 16 Pulse Ox: 98 Oxygen Delivery Method: Room Air Assessment Airway patent: Yes Spontaneous unlabored respirations: Yes Mental status: Awake and Calm nausea: No Vomiting: No Anesthesia Complication: No Fluid Hydration Crystalloid volume administer (ml): 200 Total IV fluid infused: 200 Progress Note Anesthesia document: Postop Eval 1 completed: Yes
--- NOTE | 2024-03-24 09:21 | POSTOPAN2_ITS ---
Anesthesia Postop Eval I Sum Postop Eval Completion status Anesthesia document: Postop Eval 1 completed: Yes Anesthesia Postop Eval I Summary Anesthesia Postop Eval I Summary: Anesthesia Postop Eval I: Assessment Summary Airway patent Yes 03/24/24 08:43 [email or web address] [email or web address] Spontaneous unlabored Yes 03/24/24 08:43 SPECIALTY [email or web address] respirations Mental status Awake,Calm 03/24/24 08:43 SPECIALTY [email or web address] nausea No 03/24/24 08:43 SPECIALTY [email or web address].[email or web address] Vomiting No 03/24/24 08:43 SPECIALTY [email or web address].[email or web address] Anesthesia Postop Eval I: Fluid Summary Crystalloid volume administer 200 03/24/24 08:43 SPECIALTY [email or web address].[email or web address] (ml) Colloids volume administered ( ml) Blood Product volume administered (ml) Total IV fluid infused 200 03/24/24 08:43 SPECIALTY [email or web address].[email or web address] Anesthesia Postop Eval I: Summary Notes Anesthesia Complication No 03/24/24 08:43 SPECIALTY [email or web address] Anesthesia Complication Comment: Post-operative progress note Anesthesia: Postop Eval II Evaluation Mental status: Awake Pain Level: 0 nausea: No Vomiting: No
--- NOTE | 2024-03-24 09:21 | PCM.POSTANE2 ---
Anesthesia Postop Eval I Sum Postop Eval Completion status Anesthesia document: Postop Eval 1 completed: Yes Anesthesia Postop Eval I Summary Anesthesia Postop Eval I Summary: Anesthesia Postop Eval I: Assessment Summary Airway patent Yes 03/24/24 08:43 [email or web address] [email or web address] Spontaneous unlabored Yes 03/24/24 08:43 WASHER [email or web address].[email or web address] respirations Mental status Awake,Calm 03/24/24 08:43 WASHER [email or web address].[email or web address] nausea No 03/24/24 08:43 WASHER OPERATOR.[email or web address] Vomiting No 03/24/24 08:43 WASHER [email or web address].[email or web address] Anesthesia Postop Eval I: Fluid Summary Crystalloid volume administer 200 03/24/24 08:43 WASHER [email or web address].GDOTT (ml) Colloids volume administered ( ml) Blood Product volume administered (ml) Total IV fluid infused 200 03/24/24 08:43 WASHER [email or web address].[email or web address] Anesthesia Postop Eval I: Summary Notes Anesthesia Complication No 03/24/24 08:43 WASHER [email or web address].GDOTT Anesthesia Complication Comment: Post-operative progress note Anesthesia: Postop Eval II Evaluation Mental status: Awake Pain Level: 0 nausea: No Vomiting: No
== END 2024-03-24 09:16 | disposition home or self-care (01) ==
LOC: EN 07:43 → AC 07:58
PROVIDERS: PCP Family Medicine; Referring Provider Family Medicine; Visit Provider Surgery
PROC: 0DJ08ZZ Inspection of Upper Intestinal Tract, Via Natural or Artificial Opening Endoscopic (ICD-10-PCS; CPT 43235; principal; 2024-03-24 08:25)
DX: R11.0 Nausea (principal); R63.4 Abnormal weight loss; I10 Essential (primary) hypertension; Z79.899 Other long term (current) drug therapy; K21.9 Gastro-esophageal reflux disease without esophagitis; Z90.49 Acquired absence of other specified parts of digestive tract; Z90.710 Acquired absence of both cervix and uterus; Z68.26 Body mass index [BMI] 26.0-26.9, adult
CPT/HCPCS: 43235; J7120

== ENCOUNTER → 2024-05-12 | Outpatient (CLI) | payer MEDICARE, SELFPAY ==
--- NOTE | 2024-05-12 11:30 | PET_ITS ---
EXAMINATION: FDG-PET/CT ? INDICATIONS: 73-year-old female with a history of malignant neoplasm of overlapping sites of the left breast, presenting for apparent restaging examination. ? COMPARISON EXAMINATION:? None available ? TECHNIQUE: Following the intravenous administration of 14.29 mCi of F-18 deoxyglucose via the right antecubital fossa, multiplanar image acquisitions of the head, neck, chest, abdomen and pelvis to the level of the midthigh, obtained at one-hour post radiopharmaceutical administration contemporaneously interpreted with the current CT of the chest, abdomen and pelvis dated 05/12/2024 via coregistration reveal: ? SERUM GLUCOSE LEVEL:? 88 mg/dL? HEIGHT:?? 61 inches WEIGHT:?? 142 pounds ? FINDINGS: ? HEAD/NECK:? There is no evidence of abnormal increased glucose metabolism in the pharyngeal mucosal space, parapharyngeal space, oropharynx, bilateral-lateral and anterior neck, hypopharynx and distribution of the larynx. ? The visualized portion of the cerebral cortical-subcortical structures demonstrate symmetric and preserved glucose metabolism. ? CHEST:? There is no quantitative scintigraphic evidence of abnormal increased glucose metabolism within the context of the bilateral hemithorax pulmonary parenchyma, right and left hemithorax at the pleural interface, mediastinal structures, and left-right thoracic perihilum.? The left ventricular myocardium is demonstrated, consistent with the [place]. ? CT of the chest demonstrates the following anatomic characteristics: Atherosclerotic calcification is defined in the thoracic aorta without evidence of dilatation, aneurysm formation.? Coronary arterial calcification is observed.? A parenchymal density defined in the posterior aspect of the right upper lobe adjacent to the major fissure demonstrates no evidence of increased FDG uptake.? Bilateral axillary and scattered mediastinal soft tissue densities are ametabolic. ? ABDOMEN/PELVIS:? Normal physiologic distribution of the radiopharmaceutical is identified in the hepatic and splenic parenchyma, both renal units, urinary bladder, and visualized intestinal tract. ? CT of the abdomen and pelvis is remarkable for the following: Atherosclerotic calcification is defined in the abdominal aorta without evidence of dilatation, aneurysm formation.? Pelvic arterial calcification is observed. Colonic diverticulosis is noted without evidence of diverticulitis.? Bilateral fat containing inguinal hernias are demonstrated.? There is evidence of calcification within the urinary bladder.? The gallbladder is surgically absent.? ? SKELETAL:? There is no evidence of quantitatively significant enhanced glucose metabolism on meticulous inspection of the appendicular and axial skeletal structures. ? Degenerative changes defined in the thoracic and lumbar spine demonstrate no evidence of increased glucose metabolism. There are no sclerotic, mixed sclerotic-lytic, or primarily lytic changes defined in the axial skeletal structures with evidence of increased FDG uptake. ? PET/PET/CT Tumor Base -Thigh Init IMPRESSION: 1. NEGATIVE EXAMINATION.? There is no definitive quantitative scintigraphic evidence of recurrent-metastatic viable neoplasm. 2.? The right upper lobe noncalcified parenchymal density is nonglucose avid.? Metabolic, morphologic stability may be ensured in this location with repeat FDG-PET CT imaging in 3-6 months, if clinically indicated. Electronic Signature Suraj Rodriguez D.O. Accurate Quantification of SUVs for this report are calculated using the exclusive [employer]. ([place].S. Patent No. [phone] [id number] B2 [phone] [place] patent [phone]). Standardization and correction of the FDG SUV metric via [employer] technology allow for vendor non-specific objective quantitative examination comparison and optimization of the sensitivity and specificity of the FDG PET-CT examination. [email or web address] Electronically Signed: Suraj Rodriguez DO at 7:46 EDT ,
== END | disposition home or self-care (01) ==
PROVIDERS: PCP Family Medicine; Referring Provider Internal Medicine Hematology & Oncology; Visit Provider Internal Medicine Hematology & Oncology
DX: C50.812 Malignant neoplasm of overlapping sites of left female breast (principal); Z17.0 Estrogen receptor positive status [ER+]; R91.1 Solitary pulmonary nodule
CPT/HCPCS: 78815; A9552

== ENCOUNTER → 2024-05-13 | Outpatient (CLI) | payer MEDICARE, SELFPAY ==
[2024-05-13 11:39] LABS: ALB/GLOB Ratio 1.2 RATIO (0.9-2.4); AST(SGOT) 17 U/L (15-37); Alanine Aminotransfer ALT/SGPT 18 U/L (13-56); Albumin, Serum 3.9 g/dL (3.2-5.0); Alkaline Phosphatase 77 U/L (45-117); Anion Gap 6 (5-15); BUN 17 mg/dL (7-18); BUN/Creat Ratio 22.8 RATIO (10-20); Calcium,Total 9.6 mg/dL (8.5-10.1); Chloride 103 mmol/L (98-107); Creatinine, Serum 0.75 mg/dL (0.55-1.02); EST Glomerular Filtration Rate 81 mL/min (>60); Est Glom Filt Rate - Afr Amer 98 mL/min (>60); Globulin 3.2 g/dL (2.2-4.2); Glucose 107 mg/dL (74-106); Magnesium 1.8 mg/dL (1.6-2.6); Potassium 4.1 mmol/L (3.5-5.1); Protein, Total 7.1 g/dL (6.4-8.2); Sodium Level 137 mmol/L (136-145)
== END | disposition home or self-care (01) ==
LOC: LAB 10:33
PROVIDERS: PCP Family Medicine; Referring Provider Internal Medicine Cardiovascular Disease; Visit Provider Internal Medicine Cardiovascular Disease
DX: R94.31 Abnormal electrocardiogram [ECG] [EKG] (principal); I49.3 Ventricular premature depolarization; I10 Essential (primary) hypertension
CPT/HCPCS: 36415; 80053; 83735; 84443

== ENCOUNTER → 2024-05-27 | Outpatient (CLI) | payer MEDICARE, SELFPAY ==
--- NOTE | 2024-05-27 06:33 | ECHOD_ITS ---
Version 2 Reason For Study: DYSPNEA Procedure This was a 2D Doppler, Color Flow transthoracic echocardiogram. Exam performed in department. Left Ventricle Normal size and thickness. Frequent PVCs, mostly in a bigeminal manner preclude accurate determination of LVEF. Estimated LVEF 50%. Diastolic function indeterminant. Right Ventricle Normal right ventricle. Atria The left atrium is mildly enlarged. Normal right atrium. Mitral Valve Trivial mitral valve insufficiency. Tricuspid Valve Moderate tricuspid valve regurgitation. Estimated pulmonary artery systolic pressure 43 mmHg. Aortic Valve Trisinus/trileaflet aortic valve. Pulmonic Valve The pulmonic valve is not well visualized. Great Vessels Normal sized aortic root. Pericardium/Pleural No pericardial effusion. MMode/2D Measurements & Calculations LVIDd: 4.4 cm IVSd: 0.89 cm LVOT diam: 2.0 cm LVIDs: 2.9 cm LVPWd: 0.90 cm LVOT area: 3.2 cm2 RVDd: 4.0 cm FS: 34.1 % asc Aorta Diam: 3.5 cm LAV(MOD-bp): 50.6 ml LVAd ap4: 23.7 cm2 LAV(MOD-bp) Indexed: 30.6 ml/m2 LVLd ap4: 7.8 cm LAV(MOD-sp2): 49.7 ml EDV(MOD-sp4): 57.4 ml LAV(MOD-sp4): 47.1 ml EDV(sp4-el): 61.2 ml LVAs ap4: 13.3 cm2 LVLs ap4: 6.4 cm ESV(MOD-sp4): 22.7 ml ESV(sp4-el): 23.4 ml EF(MOD-sp4): 60.4 % EF(sp4-el): 61.9 % LVAd ap2: 27.3 cm2 SV(MOD-sp4): 34.7 ml SV(MOD-sp2): 47.2 ml LVLd ap2: 7.9 cm SI(MOD-sp4): 21.0 ml/m2 SI(MOD-sp2): 28.6 ml/m2 EDV(MOD-sp2): 75.6 ml EDV(sp2-el): 79.6 ml LVAs ap2: 14.9 cm2 LVLs ap2: 6.4 cm ESV(MOD-sp2): 28.3 ml ESV(sp2-el): 29.8 ml EF(MOD-sp2): 62.5 % SV(sp4-el): 37.9 ml Ao sinus diam: 3.[address] Junction: 2.6 cm LA dimension(2D): 3.8 cm LA A4 area: 17.3 cm2 RA A4 area: 12.7 cm2 TAPSE: 1.5 cm Time Measurements MV dec time: 0.17 sec Doppler Measurements & Calculations MV E max braulio: 101.9 cm/sec Lat Peak E' Braulio: 11.8 cm/sec Med Peak E' Braulio: 9.6 cm/sec MV A max braulio: 119.4 cm/sec E/E' lat: 8.6 E/E' med: 10.6 MV E/A: 0.85 MV dec slope: 603.3 cm/sec2 Ao V2 max: 164.1 cm/sec LV V1 max: 107.8 cm/sec Ao max P.8 mmHg LV V1 max P.6 mmHg Ao V2 mean: 113.0 cm/sec LV V1 mean P.6 mmHg Ao mean P.7 mmHg LV V1 mean: 78.7 cm/sec Ao V2 VTI: 34.8 cm LV V1 VTI: 24.5 cm AV (velocity ratio): 0.70 TALIA(I,D): 2.2 cm2 TALIA(V,D): 2.1 cm2 SV(LVOT): 77.7 ml PA V2 max: 106.3 cm/sec TR max braulio: 300.5 cm/sec PA max PG (full): 1.9 mmHg TR max P.5 mmHg ECHO/Echo Complete Interpretation Summary Frequent PVCs, mostly in a bigeminal manner preclude accurate determination of LVEF. Estimated LVEF 50%. Diastolic function indeterminant. The left atrium is mildly enlarged. Moderate tricuspid valve regurgitation. Estimated pulmonary artery systolic pre ssure 43 mmHg. Ordering Physician: Emre Ramos Referring Physician: Emre Ramos MD Performed By: Vera Joiner RDCS
== END | disposition home or self-care (01) ==
PROVIDERS: PCP Family Medicine; Referring Provider Internal Medicine Cardiovascular Disease; Visit Provider Internal Medicine Cardiovascular Disease
DX: R94.31 Abnormal electrocardiogram [ECG] [EKG] (principal); I48.91 Unspecified atrial fibrillation; R42 Dizziness and giddiness; R06.09 Other forms of dyspnea; R55 Syncope and collapse; R00.2 Palpitations; I49.3 Ventricular premature depolarization
CPT/HCPCS: 78452; 93017; 93225; 93226; 93306; A9500; A4216; J2785

== ENCOUNTER 2024-06-04 06:50 | Day surgery (SDC) | payer MEDICARE, SELFPAY ==
[2024-06-02 10:46] LABS: Absolute Lymphocyte Count 0.92 X10^3/uL (0.83-4.51); Absolute Neutrophil Count 5.3 X10^3/uL (2.0-7.7); Basophil# 0.05 X10^3/uL; Basophil% 0.7 % (0-1); Eosinophil# 0.04 X10^3/uL; Eosinophils% 0.6 % (0-5); Hematocrit 38.9 % (37-47); Hemoglobin 12.6 g/dL (12.0-15.0); Lymphocyte # 0.92 X10^3/ul (0.83-4.51); Lymphocyte % 13.6 % (19-41); Mean Corp Hgb Conc 32.4 g/dL (32-36); Mean Corpuscular Hgb 28.7 pg (27.0-32.0); Mean Corpuscular Volume 88.6 fL (81-99); Mean Platelet Vol. 9.6 fl (6.2-12.0); Monocyte# 0.45 X10^3/uL; Monocyte% 6.7 % (0-10); NRBC Flagged by Analyzer 0 % (0-5); Neutrophil # 5.25 X10^3/uL (2.7-7.7); Platelet Count 325 K/mm3 (150-450); RBC Distribution Width SD 42.5 fl (35.1-43.9); Red Blood Count 4.39 M/mm3 (4.2-5.4); White Blood Count 6.7 K/mm3 (4.4-11.0)
[2024-06-02 11:01] LABS: International Normalized Ratio 1.1; Prothrombin Time (Protime)PT. 13.8 SECONDS (11.7-14.9)
[2024-06-03 08:33] VITALS: BMI 25.9
== END 2024-06-04 10:50 | disposition home or self-care (01) ==
PROVIDERS: PCP Family Medicine; Referring Provider Internal Medicine Cardiovascular Disease; Visit Provider Internal Medicine Cardiovascular Disease
DX: Z01.810 Encounter for preprocedural cardiovascular examination (principal); C50.919 Malignant neoplasm of unspecified site of unspecified female breast; I49.3 Ventricular premature depolarization; I10 Essential (primary) hypertension; R94.31 Abnormal electrocardiogram [ECG] [EKG]; R94.39 Abnormal result of other cardiovascular function study; Z90.49 Acquired absence of other specified parts of digestive tract; Z82.49 Family history of ischemic heart disease and other diseases of the circulatory system; Z90.710 Acquired absence of both cervix and uterus
CPT/HCPCS: 36415; 71046; 85025; 85610; 93458; 99152; 99153; C1769; J7040; Q9967; C1894

== ENCOUNTER → 2024-06-05 | Outpatient (CLI) | payer MEDICARE, SELFPAY | END | disposition home or self-care (01) | LOC: PSN 14:00 | PROVIDERS: PCP Family Medicine; Referring Provider Internal Medicine Cardiovascular Disease; Visit Provider Internal Medicine Cardiovascular Disease | DX: R94.31 Abnormal electrocardiogram [ECG] [EKG] (principal); I49.3 Ventricular premature depolarization; Z98.890 Other specified postprocedural states | CPT/HCPCS: 93225; 93226 ==

== ENCOUNTER → 2024-07-01 | Outpatient (CLI) | payer MEDICARE, SELFPAY | END | disposition home or self-care (01) | LOC: PSN 11:41 | PROVIDERS: PCP Family Medicine; Referring Provider Nurse Practitioner Family; Visit Provider Nurse Practitioner Family | DX: I49.3 Ventricular premature depolarization (principal) | CPT/HCPCS: 93225; 93226 ==

== ENCOUNTER → 2024-08-18 | Outpatient (CLI) | payer MEDICARE, SELFPAY ==
[2024-08-18 09:03] LABS: Cholesterol 216 mg/dL (200); High Density Lipoprotein 86 mg/dL; Triglycerides 139 mg/dL; Very Low Density Lipoprotein 28 mg/dL (5-40)
== END | disposition home or self-care (01) ==
LOC: LAB 08:20
PROVIDERS: PCP Family Medicine; Referring Provider Internal Medicine Cardiovascular Disease; Visit Provider Internal Medicine Cardiovascular Disease
DX: I25.10 Atherosclerotic heart disease of native coronary artery without angina pectoris (principal)
CPT/HCPCS: 36415; 80061

== ENCOUNTER → 2024-10-28 | Outpatient (CLI) | payer MEDICARE, SELFPAY ==
--- NOTE | 2024-10-28 09:00 | BD_ITS ---
PROCEDURE: DEXA BONE DENSITY STUDY 10/28/2024 REASON FOR EXAM: OSTEOPOROSIS F, age 73 y/o . Postmenopausal. TECHNIQUE: DXA scan of the lumbar spine and bilateral hips., Using make and model. RE[facility]ENCE [facility]KS: [facility] Adult Positions COMPARISON: Comparison is made with prior study dated September 04, 2018. FINDINGS: BMD and T-SCORES Lumbar spine: 0.924 g/cm2, T-Score -1.1 L1 through L4 Change from prior: Improvement by 0.1% Left femoral neck: 0.709 g/cm2, T-Score -1.3 Femoral neck comparison data not recommended for monitoring change. Left total hip: 0.866 g/cm2, T-Score -0.6 Change from prior: Improvement by 4.2% Right femoral neck: 0.6 C3 g/cm2, T-Score -1.5 Femoral neck comparison data not recommended for monitoring change. Right total hip: 0.861 g/cm2, T-Score -0.7 Change from prior: Improvement by 0.1% The patient doesmeet the pharmacological treatment recommendations for prevention of osteoporosis BD/Dexa Bone Density Study IMPRESSION: OSTEOPENIA. Recommend follow-up as clinically warranted. Reading Location: [place] [address]
== END | disposition home or self-care (01) ==
LOC: OPBD 08:54
PROVIDERS: PCP Family Medicine; Referring Provider Family Medicine; Visit Provider Family Medicine
DX: M81.0 Age-related osteoporosis without current pathological fracture (principal)
CPT/HCPCS: 77080